=== PATIENT | female | born 1980 | race Caucasian/White ===

== ENCOUNTER → 2018-01-15 | Outpatient (CLI) | payer OTHER | LOC: FIMAGING 13:02 | PROVIDERS: ATTEND Advanced Practice Midwife | DX: O09.522 Supervision of elderly multigravida, second trimester (principal); O99.212 Obesity complicating pregnancy, second trimester; Z3A.20 20 weeks gestation of pregnancy; Z68.39 Body mass index [BMI] 39.0-39.9, adult ==

== ENCOUNTER 2018-05-03 15:20 | Observation (INO) | payer OTHER ==
[2018-05-03 16:51] LABS: PLATELET COUNT 289 10^3/uL (150-400)
--- NOTE | 2018-05-03 23:26 | GHP ---
[f rep st] PREOP HISTORY AND PHYSICAL DATE OF ADMISSION: 05/03/2018 ADMISSION DIAGNOSES: 1. Intrauterine at 36 and 2/7 weeks gestation. 2. Elevated blood pressures in the office. Patient is a 38-year-old 2, para 0-0-1-0 who is 36 and 2/7 weeks gestation. She is receiving care at [facility] primarily seeing the midwives. Patient had an elevated blood pressure today in the office and so was sent over to Labor and Delivery for monitoring. heart tracing was category 1 and reactive. Her blood pressures had a high of 140/70s to 80s. She denied a ny headache, changes in vision, nausea, vomiting, fevers, or chills. She had preeclampsia labs obtai jaci which were all normal. Her platelets were 289. Creatinine is 0.7. AST is 15, ALT is 20. jC rasmussen was discharged to home with labor precautions and kick counts and pre-eclampsia precautions. She is instructed to keep her appointment on Sunday and call sooner if she develops any headaches or johann nges in vision or has an elevated blood pressure at home. /[id number]/MODL
== END 2018-05-03 17:00 | disposition home or self-care (01) ==
LOC: FLD 15:20
PROVIDERS: ADMIT Obstetrics & Gynecology; ATTEND Obstetrics & Gynecology
DX: Z34.93 Encounter for supervision of normal pregnancy, unspecified, third trimester (principal); R03.0 Elevated blood-pressure reading, without diagnosis of hypertension; Z3A.36 36 weeks gestation of pregnancy
CPT/HCPCS: 59025; G0378

== ENCOUNTER 2018-05-09 05:59 | Inpatient (IN) | payer OTHER ==
[2018-05-09] MEDS ORDERED: EPSOM SALT 454 GM TP PRN (06:13)
[2018-05-09] MEDS ORDERED: AMMONIA AROMATIC 1 EACH AMP IH PRN (06:13)
[2018-05-09] MEDS ORDERED: TERBUTALINE SULFATE 1 MG/ML VIAL IV PRN (06:13)
[2018-05-09] MEDS ORDERED: OXYTOCIN/RINGERS LACTATE 1,000 ML IV PRN (06:13)
[2018-05-09] MEDS ORDERED: MISOPROSTOL 200 MCG TAB PO PRN (06:13)
[2018-05-09] MEDS ORDERED: IBUPROFEN 600 MG TAB PO PRN (06:13)
[2018-05-09] MEDS ORDERED: OLIVE OIL 118 ML BTL MISC PRN (06:13)
[2018-05-09] MEDS ORDERED: LIDOCAINE 1% 300 MG/30 ML SDV SC PRN (06:13)
[2018-05-09] MEDS ORDERED: LIDOCAINE 1% 300 MG/30 ML SDV ONE (07:09)
[2018-05-09] MEDS ORDERED: OLIVE OIL 118 ML BTL ONE (07:09)
[2018-05-09] MEDS ORDERED: AMMONIA AROMATIC 1 EACH AMP IH ONE (07:09)
[2018-05-09] MEDS ORDERED: OXYTOCIN 10 UNIT/ML VIAL ONE (07:10)
[2018-05-09] MEDS ORDERED: MISOPROSTOL 200 MCG TAB ONE (07:10)
[2018-05-09] MEDS ORDERED: TERBUTALINE SULFATE 1 MG/ML VIAL ONE (07:10)
[2018-05-09] MEDS ORDERED: LR 500 ML IV PRN (07:16)
--- NOTE | 2018-05-09 07:16 | PDGENHP ---
History and Physical History and Physical: CARE: [facility] HPI: Patient is a [id number] with IUP@37-1wks (/) that presents to L&D for IOL 2/ 2 GHTN. She denies any MCMAHAN, visual changes, epigastric pain. She had beck placed 05/08/18. She reports some contractions initially after placement but decreased through the night. She denies any LOF, VB. She reports +FM. EDC: 05/29/18 which is based on LMP: 08/22/17 which is known and consistent with Ultrasound at 7 weeks. Her is complicated by: AMA, elevated BMI, abnormal 1 hr GTT- 3hr NL Review of Systems: Constitutional: Denies any fever, chills, or fatigue HEENT: denies any visual changes, difficulty swallowing, hearing loss Cardiovascular: Denies any chest pain, palpitations, leg swelling Respiratory: denies any cough, wheezing, or shortness of breathe GI: Denies any nausea, vomiting, diarrhea, constipation : denies any dysuria, urgency, frequency, vaginal bleeding Musculoskeletal: denies any muscle or bone pain Skin: denies any rashes Neuro: denies any headache, seizures, lightheadedness, dizziness, or loss of consciousness Psychiatric: denies any depression, anxiety, or SI/HI thoughts HISTORY: Previous OB history: MAB Past medical history: elevated BMI, 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), h/o lyme disease Past surgical history: tonsillectomy Medications: PNV Allergies (list reaction): doxycycline- hives LABS: Rh: A+ ABS: Neg Rubella: Immune HbsAg: NR HIV: NR VDRL: NR 1hr: 146, 3hr GTT NL GC: Neg Chlamydia: Neg Pap: Normal GBS: Negative PHYSICAL EXAM: Constitutional: WN, A&Ox3 HEENT: normocephalic atraumatic, supple Heart: RRR, no murmur Chest: CTA-B Abdomen: Soft, nontender, gravid SVE: deferred on admission Extremities: trace edema, negative karen's sign Neuro: grossly normal Psych: normal affect assessment: Reassuring FHTs, baseline 150 +accels, no decels, moderate variability Contractions: toco irregular Assessment: 1) [id number] with IUP@ 37-1wks (L/) 2) IOL 2/2 GHTN 3) GBS negative 4) Cat 1 FHR tracing Plan: 1) Admit to L&D 2) pitocin 3) AROM PRN 4) pain management PRN 5) Pre E labs sent 6) anticipate
[2018-05-09] MEDS ORDERED: OXYTOCIN/RINGERS LACTATE 500 ML IV SCH (07:30)
[2018-05-09] MEDS: LR 1,000 ML IV PRN ×2 (08:25→15:57)
[2018-05-09 08:55] LABS: PLATELET COUNT 273 10^3/uL (150-400)
--- NOTE | 2018-05-09 13:48 | OBPROG ---
Labor Progress Note Assessment/Plan: Assessment: [id number] with IUP@ 37-1wks IOL 2/2 GHTN GBS Negative AROM- clear Plan: ambulate Consider FSE placement since tracing heart tones difficult due to maternal habitus hydrotherapy PRN pain management PRN reassess 2hr/PRN anticipate 05/09/18 14:00 Subjective/Intrapartum Course: 05/09/18 14:12 Pt doing well, she is breathing through contractions. She declines pain medication at this time. She is more comfortable being out of bed. Objective: 05/09/18 08:00 05/09/18 08:00 Patient ABO/Rh A POSITIVE 05/09/18 08:00 Uric Acid 5.6 mg/dL (2.5-6.8) 05/09/18 08:00 Total Bilirubin 0.4 mg/dL (0.1-1.4) 05/09/18 08:00 Conjugated Bilirubin 0.1 mg/dL (0.0-0.5) 05/09/18 08:00 Unconjugated Bilirubin 0.3 mg/dL (0.0-1.1) 05/09/18 08:00 AST 19 IU/L (14-46) 05/09/18 08:00 ALT 21 IU/L (9-52) 05/09/18 08:00 Lactate Dehydrogenase 378 IU/L (313-618) 05/09/18 08:00 - Contraction Pattern Assessment Current Contraction Pattern: Regular - FHR Assessment Vanegas FHR (bpm): 145 (very difficult to monitor) FHR Pattern Variability: Moderate FHR Category: 1 - Procedures Non-surgical Procedures: Amniotomy Oxytocin Orders Assessment - Pre-Induction/Augmentation Assessment Gestational Age: 37 week(s) and 1 day(s) ICD10 Worksheet Patient Problems: Problems Problem Status Onset Encounter for induction of labor Acute Gestational hypertension Acute - ICD10 Problem Qualifiers (1) Gestational hypertension (2) Encounter for induction of labor
[2018-05-09] MEDS ORDERED: PHENYLEPHRINE HCL 100 MCG/ML SYR ONE (15:12)
[2018-05-09] MEDS ORDERED: BUPIVACAINE 0.25% 30 ML SDV ONE (15:12)
[2018-05-09] MEDS ORDERED: fentaNYL 2MCG/ML/BUP 0.1% RTU 100 ML BAG EP ONE (15:12)
[2018-05-09] MEDS ORDERED: fentaNYL 100 MCG/2 ML INJ ONE (15:13)
[2018-05-09] MEDS ORDERED: ONDANSETRON 4 MG/2 ML VIAL IVP PRN (17:47)
[2018-05-09] MEDS ORDERED: PHENYLEPHRINE HCL 100 MCG/ML SYR IVP PRN (17:47)
--- NOTE | 2018-05-09 17:53 | PREANESOB ---
Obstetric Pre-Anesthesia Info - General Info Proposed Procedure: Labor and delivery with pitocin. : 2 Para: 0 MARILY: 05/29/18 Gestational Age: 37 week(s) and 1 day(s) - Info Status: Full Term Monitors: External FHR Baseline (bpm): 145 FHR Pattern: Reassuring - Labor Status Cervical Dilation per last OB SVE: 5 Rupture of Membranes Date: 05/09/18 Rupture of Membranes Time: 13:30 Pitocin: In Use PIH: Moderate Indications for Labor Analgesia: BP Control, Induction of Labor, Pain Control Labor Epidural: Proposed Anesthesia ROS: Previous general anesthesia. Allergies/Adverse Reactions: Allergy/AdvReac Type Severity Reaction Status Date / Time doxycycline Allergy Verified 05/03/18 15:43 Penicillins Allergy Verified 05/03/18 17:36 Visit Medications: Generic Name Dose Route Start Last Admin Trade Name Freq PRN Reason Stop Dose Admin Ammonia (Aromatic Spirit) 1 each 05/09/18 06:13 Ammonia Aromatic IH 05/19/18 06:12 ONCE PRN Fainting Diphenhydramine HCl 25 - 50 mg 05/09/18 17:47 Benadryl Injection IVP 11/05/18 17:46 Q6HRS PRN Itching Lactated Ringer's 1,000 mls @ 0 mls/hr 05/09/18 06:13 05/09/18 15:57 Lr IV 05/10/18 06:12 1,000 mls PRN PRN Administration SEE PROTOCOL CONDITIONS Protocol Per Protocol Oxytocin/Lactated Ringer's 1,000 mls @ 0 mls/hr 05/09/18 06:13 Pitocin 20 Units/Lr (Premix) IV PRN PRN Post bleeding Per Protocol Lactated Ringer's 500 mls @ 500 mls/hr 05/09/18 07:16 Lr IV 05/10/18 07:18 PRN PRN Maternal Hypotension Oxytocin/Lactated Ringer's 500 mls @ 0 mls/hr 05/09/18 07:30 05/09/18 08:26 Pitocin 30 Units/Lr (Premix) IV 11/05/18 07:29 500 mls CONT SHAILESH Administration Protocol Per Protocol Fentanyl/Bupivacaine HCl 100 mls @ 0 mls/hr 05/09/18 18:00 Fentanyl/Bupivacaine/Ns 2 Mcg/Ml 0.1% (Premix EP 05/19/18 17:59 CONT SHAILESH Protocol As Directed Lactated Ringer's 500 mls @ 0 mls/hr 05/09/18 18:00 Lr IV 11/05/18 17:59 CONT SHAILESH As Directed Ibuprofen 600 mg 05/09/18 06:13 Motrin PO ONCE PRN post , pain Lidocaine HCl 300 mg 05/09/18 06:13 Lidocaine Hcl 1% SC 11/05/18 06:12 ONCE PRN episiotomy Magnesium Sulfate 454 gm 05/09/18 06:13 Epsom Salt TP 11/05/18 06:12 Q1H PRN perineal discomfort Misoprostol 800 - 1,000 mcg 05/09/18 06:13 Cytotec PO 11/05/18 06:12 ONCE PRN Vaginal Atony/Bleeding Blanchard Oil 118 ml 05/09/18 06:13 Sweet Oil MISC 11/05/18 06:12 ONCE PRN perineal massage Ondansetron HCl 4 mg 05/09/18 17:47 Zofran IVP 05/10/18 17:46 Q4HRS PRN Nausea/Vomiting, Can't Take PO Phenylephrine HCl 100 mcg 05/09/18 17:47 Neosynephrine IVP 11/05/18 17:46 .Q2M PRN Hypotension Terbutaline Sulfate 0.25 mg 05/09/18 06:13 Brethine IV 11/05/18 06:12 ONCE PRN Tachysystole Discontinued Medications Generic Name Dose Route Start Last Admin Trade Name Freq PRN Reason Stop Dose Admin Ammonia (Aromatic Spirit) Confirm 05/09/18 07:09 Ammonia Aromatic Administered 05/09/18 07:10 Dose 1 each IH .STK-MED ONE Bupivacaine HCl Confirm 05/09/18 15:12 Sensorcaine 0.25% Sdv Administered 05/09/18 15:13 Dose 30 ml .ROUTE .STK-MED ONE Fentanyl Confirm 05/09/18 15:13 Sublimaze Administered 05/09/18 15:14 Dose 100 mcg .ROUTE .STK-MED ONE Fentanyl/Bupivacaine HCl Confirm 05/09/18 15:12 Fentanyl/Bupivacaine/Ns 2 Mcg/Ml 0.1% (Premix Administered 05/09/18 15:13 Dose 100 ml EP .STK-MED ONE Lidocaine HCl Confirm 05/09/18 07:09 Lidocaine Hcl 1% Administered 05/09/18 07:10 Dose 300 mg .ROUTE .STK-MED ONE Misoprostol Confirm 05/09/18 07:10 Cytotec Administered 05/09/18 07:11 Dose 1,000 mcg .ROUTE .STK-MED ONE Blanchard Oil Confirm 05/09/18 07:09 Sweet Oil Administered 05/09/18 07:10 Dose 118 ml .ROUTE .STK-MED ONE Oxytocin Confirm 05/09/18 07:10 Pitocin Administered 05/09/18 07:11 Dose 40 unit .ROUTE .STK-MED ONE Phenylephrine HCl Confirm 05/09/18 15:12 Neosynephrine Administered 05/09/18 15:13 Dose 1,000 mcg .ROUTE .STK-MED ONE Terbutaline Sulfate Confirm 05/09/18 07:10 Brethine Administered 05/09/18 07:11 Dose 1 mg .ROUTE .STK-MED ONE - Anesthesia History Response to Local Anesthetics: Normal Anesthesia & Operative History: No Prior Problems Family Anesthesia History: Negative - Social History Substance Use/Abuse: Denies - Vital Signs Blood Pressure: 145/78 Heart Rate: 79 Height/Weight (Nursing): Height 165.1 cm Weight 106.594 kg - Focused Exam Neck exam: FROM Mallampati Score: Class 2 Mouth exam: normal dental/mouth exam Pulmonary: no respiratory distress Cardiovascular: regular rate and rhythym Labs: 05/09/18 08:00 05/09/18 08:00 Patient ABO/Rh A POSITIVE 05/09/18 08:00 Uric Acid 5.6 mg/dL (2.5-6.8) 05/09/18 08:00 Total Bilirubin 0.4 mg/dL (0.1-1.4) 05/09/18 08:00 Conjugated Bilirubin 0.1 mg/dL (0.0-0.5) 05/09/18 08:00 Unconjugated Bilirubin 0.3 mg/dL (0.0-1.1) 05/09/18 08:00 AST 19 IU/L (14-46) 05/09/18 08:00 ALT 21 IU/L (9-52) 05/09/18 08:00 Lactate Dehydrogenase 378 IU/L (313-618) 05/09/18 08:00 - Plan Anesthetic Plan: CSE Consent Signed and on Chart: Yes Patient/Guardian Understands and Agrees to Plan: Yes Urgent/Emergent Case: [place] completed preop but documented later for safe timely pt care
[2018-05-09] MEDS ORDERED: fentaNYL 2MCG/ML/BUP 0.1% RTU 100 ML EP SCH (18:00)
[2018-05-09] MEDS ORDERED: LR 500 ML IV SCH (18:00)
--- NOTE | 2018-05-09 18:10 | POSTANESTH ---
Post Anesthetic Evaluation Cardiovascular Status: Normal, Stable Respiratory Status: Normal, Stable, Similar to Pre-op Cond. Level of Consciousness/Mental Status: Can Participate in Eval, Alert and Oriented (This patient's BPs are alittle lower after her CSE but still within the normal range.) Pain Control: Adequate, Prn Tx Ordered Nausea/Vomiting Control: Adequate, Prn Tx Ordered Complications Possibly Related to Anesthesia: None Noted
--- NOTE | 2018-05-09 20:37 | OBPROG ---
Labor Progress Note Assessment/Plan: Assessment: [id number] with IUP@ 37-1wks IOL 2/2 GHTN GBS Negative AROM- clear Plan: labor down KARAN bolus attempt pushing once complete restart pitocin Subjective/Intrapartum Course: 05/09/18 14:12 Pt doing well, she is breathing through contractions. She declines pain medication at this time. She is more comfortable being out of bed. 05/09/18 19:00 Pt feeling some pain in abdomen with contractions. She denies any pressure. She is requesting anesthesia to come evaluate. Objective: 05/09/18 08:00 05/09/18 08:00 Patient ABO/Rh A POSITIVE 05/09/18 08:00 Uric Acid 5.6 mg/dL (2.5-6.8) 05/09/18 08:00 Total Bilirubin 0.4 mg/dL (0.1-1.4) 05/09/18 08:00 Conjugated Bilirubin 0.1 mg/dL (0.0-0.5) 05/09/18 08:00 Unconjugated Bilirubin 0.3 mg/dL (0.0-1.1) 05/09/18 08:00 AST 19 IU/L (14-46) 05/09/18 08:00 ALT 21 IU/L (9-52) 05/09/18 08:00 Lactate Dehydrogenase 378 IU/L (313-618) 05/09/18 08:00 Temp Pulse Resp BP Pulse Ox 79 145/78 H 05/09/18 17:53 05/09/18 17:53 - SVE Dilation (cm): 9 Effacement (%): 100 Station: +1 - Contraction Pattern Assessment Current Contraction Pattern: Regular - FHR Assessment Vanegas FHR (bpm): 145 FHR Pattern Variability: Moderate FHR Category: 1 - Procedures Non-surgical Procedures: Amniotomy, FSE, IUPC Oxytocin Orders Assessment - Pre-Induction/Augmentation Assessment Gestational Age: 37 week(s) and 1 day(s) ICD10 Worksheet Patient Problems: Problems Problem Status Onset Encounter for induction of labor Acute Gestational hypertension Acute - ICD10 Problem Qualifiers (1) Gestational hypertension (2) Encounter for induction of labor
--- NOTE | 2018-05-09 20:39 | SOAPPROG ---
SOAP Progress Note Assessment/Plan: Strip check: Category 1 Baseline 145, +accels, no decels, mod BTBV [place] not detecting contractions well, consider IUPC placement with next exam Objective: Vital Signs Temp Pulse Resp BP Pulse Ox 79 145/78 H 05/09/18 17:53 05/09/18 17:53 Laboratory Results 05/09/18 08:00 05/09/18 08:00 ICD10 Worksheet Patient Problems: Problems Problem Status Onset Encounter for induction of labor Acute Gestational hypertension Acute - ICD10 Problem Qualifiers (1) Gestational hypertension (2) Encounter for induction of labor
--- NOTE | 2018-05-09 20:43 | SOAPPROG ---
SOAP Progress Note Assessment/Plan: Strip check: Category 2 Baseline 145, +accels, prolong decel x 6min, mod BTBV IUPC in place Dr Loo called to review FHR tracing. Pitocin stopped. Pt repositioned/O2 applied Objective: Vital Signs Temp Pulse Resp BP Pulse Ox 79 145/78 H 05/09/18 17:53 05/09/18 17:53 Laboratory Results 05/09/18 08:00 05/09/18 08:00 ICD10 Worksheet Patient Problems: Problems Problem Status Onset Encounter for induction of labor Acute Gestational hypertension Acute - ICD10 Problem Qualifiers (1) Gestational hypertension (2) Encounter for induction of labor
[2018-05-10] MEDS ORDERED: SIMETHICONE 80 MG TAB CHEW PO PRN (00:46)
[2018-05-10] MEDS ORDERED: HYDROCORTISONE 0.5% CREAM TP PRN (00:46)
--- NOTE | 2018-05-10 00:46 | OBDEL ---
Info Type: Vaginal Presentation at Delivery: Vertex L&D Analgesia/Anesthesia Type: Epidural, Nitrous GBS+: No Intrapartum Medications: Generic Name Dose Route Start Last Admin Trade Name Freq PRN Reason Stop Dose Admin Lactated Ringer's 1,000 mls @ 0 mls/hr 05/09/18 06:13 05/09/18 15:57 Lr IV 05/10/18 06:12 1,000 mls PRN PRN Administration SEE PROTOCOL CONDITIONS Protocol Per Protocol Oxytocin/Lactated Ringer's 500 mls @ 0 mls/hr 05/09/18 07:30 05/09/18 08:26 Pitocin 30 Units/Lr (Premix) IV 11/05/18 07:29 500 mls CONT SHAILESH Administration Protocol Per Protocol Fentanyl/Bupivacaine HCl 100 mls @ 0 mls/hr 05/09/18 18:00 05/09/18 21:34 Fentanyl/Bupivacaine/Ns 2 Mcg/Ml 0.1% (Premix EP 05/19/18 17:59 100 mls CONT SHAILESH Administration Protocol As Directed Discontinued Medications Generic Name Dose Route Start Last Admin Trade Name Freraman PRN Reason Stop Dose Admin Ibuprofen 600 mg 05/09/18 06:13 05/09/18 23:10 Motrin PO 600 mg ONCE PRN Administration post , pain - Hospital Course Intrapartum: 05/09/18 14:12 Pt doing well, she is breathing through contractions. She declines pain medication at this time. She is more comfortable being out of bed. 05/09/18 19:00 Pt feeling some pain in abdomen with contractions. She denies any pressure. She is requesting anesthesia to come evaluate. Indications for Delivery: Gestational Hypertension Vaginal Delivery - Delivery Provider Delivery Physician/CNM: Tatyana Cortes - Labor and Delivery Onset of Contractions Date: 05/09/18 Onset of Contractions Time: 12:00 Onset of Contractions Type: Induced Rupture of Membranes Date: 05/09/18 Rupture of Membranes Time: 13:30 Rupture of Membranes Type: Artificial Amniotic Fluid Color: Clear Dilation Complete Date: 05/10/18 Dilation Complete Time: 19:00 Placenta Delivery Date: 05/10/18 Placenta Delivery Time: 22:44 Total Hours of Labor: 34 Non-surgical Procedures: Amniotomy, FSE, IUPC Vaginal Sponge Count Correct: Yes Vaginal Needle Count Correct: Yes Vaginal Sweep Performed: Yes EBL: 200 Delivery Events: Nuchal Cord Delivery Comment: pt was noted to be C/C/+2 she pushed with great maternal effort baby delivered in ALEC position. Baby to mothers chest, cord clamped x2 and cut by FOB. - Medications Labor Augmentation/Induction Methods Used: Pitocin, [place] Bulb [place] Data MARILY: 05/29/18 Gestational Age: 37 week(s) and 2 day(s) Vanegas Delivery Date: 05/10/18 Delivery Time: 22:37 Score (1 Min): 8 Score (5 Min): 9 ICD10 Worksheet Patient Problems: Problems Problem Status Onset Encounter for induction of labor Acute Gestational hypertension Acute Nuchal cord, single gestation Acute (spontaneous vaginal delivery) Acute - ICD10 Problem Qualifiers (1) Gestational hypertension (2) Encounter for induction of labor (3) (spontaneous vaginal delivery) (4) Nuchal cord, single gestation
[2018-05-10] MEDS: IBUPROFEN 600 MG TAB PO SCH ×4 (05:03→23:32)
--- NOTE | 2018-05-10 10:26 | OBPP ---
Progress Note Assessment/Plan: Assessment: Breasts - left nippled cracked and bleeding, right intact. Breasts soft bilaterally Perineum - nontender, intact Bleeding - minimal Neg Kati's Blood pressures remain slightly elevated but stable Plan: Discussed using lanolin cream as well as all purpose ointment for left nipple. Advised against pumping after feedings. coming in when the baby wakes to assist with latch. 05/10/18 20:59 05/10/18 21:02 Subjective/ Course: 05/10/18 21:04 Doing well overall. Pain well controlled with Ibuprofen. States baby is latching well now but concerned about cracked nipple. Had been advised to pump after but would rather not. Objective: 05/09/18 08:00 05/09/18 08:00 Patient ABO/Rh A POSITIVE 05/09/18 08:00 Uric Acid 5.6 mg/dL (2.5-6.8) 05/09/18 08:00 Total Bilirubin 0.4 mg/dL (0.1-1.4) 05/09/18 08:00 Conjugated Bilirubin 0.1 mg/dL (0.0-0.5) 05/09/18 08:00 Unconjugated Bilirubin 0.3 mg/dL (0.0-1.1) 05/09/18 08:00 AST 19 IU/L (14-46) 05/09/18 08:00 ALT 21 IU/L (9-52) 05/09/18 08:00 Lactate Dehydrogenase 378 IU/L (313-618) 05/09/18 08:00 Temp Pulse Resp BP Pulse Ox 36.9 C 76 18 133/82 H 97 05/10/18 08:00 05/10/18 08:00 05/10/18 08:00 05/10/18 08:00 05/10/18 08:00 Uterine Position/Fundal Height: Umbilicus -2 Uterine Tone: Firm
[2018-05-10] MEDS: DOCUSATE SODIUM 100 MG CAP PO PRN (11:21)
[2018-05-10] MEDS: ACETAMINOPHEN 325 MG TAB PO SCH ×3 (15:14→19:13)
[2018-05-11] MEDS: ACETAMINOPHEN 325 MG TAB PO SCH ×3 (02:54→17:32)
[2018-05-11] MEDS: IBUPROFEN 600 MG TAB PO SCH ×3 (05:32→17:48)
--- NOTE | 2018-05-11 11:49 | OBGCSDC ---
General Delivery Information - General Info : 2 Para: 1 Abortions: 1 Type: Vaginal L&D Analgesia/Anesthesia Type: Epidural, Nitrous Admission Date: 05/09/18 Labs: Patient ABO/Rh A POSITIVE 05/09/18 08:00 Hct 38.4 % (38.0-47.0) 05/09/18 08:00 - Hospital Course Intrapartum: 05/09/18 14:12 Pt doing well, she is breathing through contractions. She declines pain medication at this time. She is more comfortable being out of bed. 05/09/18 19:00 Pt feeling some pain in abdomen with contractions. She denies any pressure. She is requesting anesthesia to come evaluate. : 05/10/18 21:04 Doing well overall. Pain well controlled with Ibuprofen. States baby is latching well now but concerned about cracked nipple. Had been advised to pump after but would rather not. 05/11/18 11:46 S) Pt doing well, reports min pain and bleeding. she is ambulating and voiding without difficulty. She is - having difficulty with latch- has flat nipples and large breasts. Baby will stay due to weight loss. Pt is tearful and frustrated about the baby not eating- she is supplementing with donor milk and now using SNS. O) VSS, afebrile constitutional: WNF, A&Ox3 HEENT: normocephalic, atraumatic, supple Heart: RRR, No murmur Chest: CTA-B Breasts: soft, nontender, not engorged, nipples slightly cracked and bleeding Abdomen: Soft, nontender Uterus: Firm at U-2 Lochia: Minimal rubra Perineum: Intact, healing well Extremities: Trace edema, and negative Kati's sign Neuro: Grossly normal A) 38 year-old S/P PPD#2 P) Discharge to boarder today Continue / support Pelvic rest x6wks Discussed danger signs (infection, preeclampsia, depression, heavy bleeding, etc ) RTO in 2/4/6 weeks Vaginal - Delivery Provider Delivery Physician/CNM: Tatyana Cortes - Diagnosis Labor: Induced Rupture of Membranes Type: Artificial Amniotic Fluid Color: Clear Delivery Events: Nuchal Cord - Procedures Non-surgical Procedures: Amniotomy, FSE, IUPC - Delivery Non-surgical Procedures: Amniotomy, FSE, IUPC EBL: 200 Data MARILY: 05/29/18 Gestational Age: 37 week(s) and 3 day(s) Vanegas Delivery Date: 05/10/18 Delivery Time: 22:37 Score (1 Min): 8 Score (5 Min): 9 Discharge Information - Discharge Information Condition: Good Instruction/Follow Up: Two Weeks, Four Weeks, Six Weeks
[2018-05-11] MEDS: DOCUSATE SODIUM 100 MG CAP PO PRN (12:00)
[2018-05-11 13:36] VITALS: BP 138/82
== END 2018-05-11 17:56 | disposition home or self-care (01) | DRG 775 ==
LOC: FLD 05:59 → FOB 05-10 02:05
PROVIDERS: ADMIT Advanced Practice Midwife; ATTEND Obstetrics & Gynecology
PROC: 4A1H7CZ Monitoring of Products of Conception, Cardiac Rate, Via Natural or Artificial Opening (ICD-10-PCS; 2018-05-09)
PROC: 10907ZC Drainage of Amniotic Fluid, Therapeutic from Products of Conception, Via Natural or Artificial Opening (ICD-10-PCS; 2018-05-09)
PROC: 10H07YZ Insertion of Other Device into Products of Conception, Via Natural or Artificial Opening (ICD-10-PCS; 2018-05-09)
PROC: 10E0XZZ Delivery of Products of Conception, External Approach (ICD-10-PCS; principal; 2018-05-10)
DX: O13.4 Gestational [pregnancy-induced] hypertension without significant proteinuria, complicating childbirth (principal); O69.81X0 Labor and delivery complicated by cord around neck, without compression, not applicable or unspecified; O09.523 Supervision of elderly multigravida, third trimester; Z3A.37 37 weeks gestation of pregnancy; Z37.0 Single live birth
CPT/HCPCS: J2370; J2590; J3010; J3105